=== PATIENT | male | born 1950 | race Caucasian/White ===

== ENCOUNTER 2016-08-15 08:30 | Emergency (ER) | payer MEDICARE, BC ==
[2016-08-15 09:11] LABS: BASOPHILS 0.6 % (0.0-2.0); EOSINOPHILS 0.7 % (0.0-6.0); EOSINOPHILS# 0.1 X 10^3uL (0.0-0.4); HEMATOCRIT 45.3 % (42.0-54.0); HEMOGLOBIN 15.8 g/dL (14.0-18.0); LYMPHOCYTES 12.2 % (20.0-40.0); LYMPHOCYTES# 0.9 X 10^3uL (0.8-3.8); MEAN CORPUS. HGB CONCENTRATION 34.8 g/dL (32.0-36.0); MEAN PLATELET VOLUME 7.4 fL (7.4-10.4); MONOCYTES 7.4 % (2.0-10.0); MONOCYTES# 0.5 X 10^3uL (0.2-1.0); NEUTROPHILS 79.1 % (54.0-75.0); NEUTROPHILS# 5.7 X 10^3uL (2.6-6.7); RED BLOOD COUNT 4.92 X 10^6uL (4.20-6.10); RED CELL DISTRIBUTION WIDTH 12.4 % (11.5-14.5); WHITE BLOOD COUNT 7.2 X 10^3uL (3.9-10.7)
--- NOTE | 2016-08-15 09:14 | RADIOLOGY REPORT ---
HISTORY: And swelling without trauma COMPARISON: None. FINDINGS: 3 views of the right hand obtained. There is mild periarticular osteopenia. There is normal alignment to the bones. There is no fracture or dislocation. Minimal degenerative change in the DIP joints is evident. Soft tissues are normal. IMPRESSION: No acute findings. 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 Final Electronic Signature: This report was electronically signed by Lobito Kan MD on 08/15/2016 9 :11 AM. [email or web address] /
[2016-08-15 09:16] LABS: C-REACTIVE PROTEIN 6.5 mg/L (<10.0)
--- NOTE | 2016-08-15 10:24 | ER NURSING DOCUMENTATION ---
Nurse's Notes [facility] Name:Kumar Hollingsworth Age:66 yrs Sex:Male :1950 Arrival Date:08/15/2016 Time:08:30 Bed1 Private MD: Diagnosis:Herpetic Rubio Presentation: 08/15 08:33 Presenting complaint: Patient states: R hand swelling. Transition of care: Home. lp 08:33 Acuity: SARI 4 lp 08:33 Method Of Arrival: Private Vehicle lp 08:54 Acuity: SARI 3 lp Triage Assessment: 08:53 General: Appears in no apparent distress, Behavior is appropriate for age. Pain: lp Complains of pain in dorsal aspect of distal phalanx of right middle finger, dorsal aspect of middle phalanx of right middle finger, dorsal aspect of distal phalanx of right ring finger, dorsal aspect of middle phalanx of right ring finger, palmar aspect of distal phalanx of right ring finger, palmar aspect of middle phalanx of right ring finger, palmar aspect of distal phalanx of right middle finger and palmar aspect of middle phalanx of right middle finger. Historical: - Allergies: No known drug Allergies; - Home Meds: 1. levothyroxine 75 mcg oral tab 1 tab once daily for Hypothyroidism 2. simvastatin 20 mg oral tab 1 tab once daily in the evening 3. folic acid 1 mg oral tab 1 tab once daily 4. aspirin 81 mg oral tab 1 tab once daily - PMHx: hyperlipidemia; HYPOTHYROIDISM; - PSHx: R rotator cuff surgery; - Tetanus: unknown. - Ebola Screening: : Patient negative for fever greater than or equal to 101.5 degrees Fahrenheit, and additional compatible Ebola Virus Disease symptoms. Patient denies exposure to infectious person. Patient denies travel to an Ebola-affected area in the 21 days before illness onset. . - Immunization history: Pneumococcal vaccine is up to date, Flu Vaccine < 1 year. - Social history: Smoking status: Patient states was never smoker of tobacco. Screenin:57 Infectious Disease Risk None. Abuse screen: Denies threats or abuse. Denies injuries lp from another. Nutritional screening: No deficits noted. Assessment: 08:55 General: Behavior is appropriate for age. Pain: Complains of pain in dorsal aspect of lp distal phalanx of right middle finger, dorsal aspect of middle phalanx of right middle finger, dorsal aspect of distal phalanx of right ring finger, dorsal aspect of middle phalanx of right ring finger, palmar aspect of distal phalanx of right ring finger, palmar aspect of middle phalanx of right ring finger, palmar aspect of distal phalanx of right middle finger and palmar aspect of middle phalanx of right middle finger. Neuro: Level of Consciousness is awake, alert, Oriented to person, place, time, event, [employer] are equal bilaterally Moves all extremities. EENT: No deficits noted. Cardiovascular: Heart tones S1 S2 Edema is 2+ to right fingers Pulses are all present. Respiratory: Breath sounds are clear bilaterally. GI: No deficits noted. : No deficits noted. Derm: Skin has lesions on R middle and ring finger R hand swelling and redness in R middle finger and R ring finger. Musculoskeletal: Circulation, motion, and sensation intact Capillary refill < 3 seconds Swelling present in dorsal aspect of distal phalanx of right middle finger, dorsal aspect of middle phalanx of right middle finger, dorsal aspect of distal phalanx of right ring finger, dorsal aspect of middle phalanx of right ring finger, palmar aspect of distal phalanx of right ring finger, palmar aspect of middle phalanx of right ring finger, palmar aspect of distal phalanx of right middle finger and palmar aspect of middle phalanx of right middle finger. Vital Signs: 08:42 BP 144 / 103; Pulse 90; Resp 16; Temp 98.0(O); Pulse Ox 90% on R/A; Weight 86.18 kg; lp Height 6 ft. 1 in. (185.42 cm); Pain 5/10; 08:42 Body Mass Index 25.07 (86.18 kg, 185.42 cm) lp ED Course: 08:31 Patient arrived in ED. lm3 08:33 Nadya Hernandez, ARVIND is Primary Nurse. lp 08:34 Triage completed. lp 08:[address] Hays notified. lp 08:47 Camron Hays MD is Attending Physician. sc 08:57 Valuables Remains with patient Patient has correct armband on for positive lp identification. Bed in low position. Call light in reach. 09:05 Port Xray Completed. dnn 09:07 HAND; [address] [place] [id number] In Process Unspecified. EDMS 09:07 HAND [address] [place] [id number] In Process Unspecified. EDMS 09:17 HAND; [address] [place] [id number] Sent. dnn 09:17 HAND [address] [place] [id number] Sent. dnn Administered Medications: No medications were administered Outcome: 10: Discharge ordered by . jack 10:23 Discharged to home ambulatory. lp 10: Condition: good 10:23 Instructed on discharge instructions, follow up and referral plans. medication usage, Demonstrated understanding of instructions. 10:23 Patient left the ED. lp Signatures: Dispatcher [employer] Nadya Alexandre, ARVIND RN Camron Brady MD MD sc Abbott, Lobito Taylorn Hannah Bustillos
--- NOTE | 2016-08-15 10:24 | ER PHYSICIAN DOCUMENTATION ---
Physician Documentation [facility] Name:Kumar Hollingsworth Age:66 yrs Sex:Male :1950 Arrival Date:08/15/2016 Time:08:30 Bed1 Private MD: Camron Potts Disposition: 08/15/16 10:17 Discharged to Home/Self Care. Impression: Herpetic Leon. - Condition is Good. - Discharge Instructions: Sore, Cold - HERPES LABIALIS, HSV: Type I. - Medical Reconciliation form form. - Follow up: Private Physician; When: As needed; Reason: Worsening of condition. - Problem is new. - Symptoms are unchanged. HPI: 08/15 10:20 This 66 yrs old Male presents to ER via Private Vehicle with complaints of sc Hand Swelling. 10:20 The patient or guardian reports a rash, raised, vesicular. The complaints affect the sc palmar aspect of distal phalanx of right middle finger and palmar aspect of middle phalanx of right ring finger. Context: The problem was sustained at home, resulted from an unknown cause. Onset: The symptom(s)/episode began/occurred today. Associated signs and symptoms: Pertinent positives: tingling distally, burning yesterday then lesions today. Historical: - Allergies: No known drug Allergies; - Home Meds: 1. levothyroxine 75 mcg oral tab 1 tab once daily for Hypothyroidism 2. simvastatin 20 mg oral tab 1 tab once daily in the evening 3. folic acid 1 mg oral tab 1 tab once daily 4. aspirin 81 mg oral tab 1 tab once daily - PMHx: hyperlipidemia; HYPOTHYROIDISM; - PSHx: R rotator cuff surgery; - Tetanus: unknown. - Ebola Screening: : Patient negative for fever greater than or equal to 101.5 degrees Fahrenheit, and additional compatible Ebola Virus Disease symptoms. Patient denies exposure to infectious person. Patient denies travel to an Ebola-affected area in the 21 days before illness onset. . - Immunization history: Pneumococcal vaccine is up to date, Flu Vaccine < 1 year. - Social history: Smoking status: Patient states was never smoker of tobacco. ROS: 10:22 Constitutional: Negative for fever, chills, and weight loss. sc Eyes: Negative for injury, pain, redness, and discharge. Neck: Negative for injury, pain, and swelling. Cardiovascular: Negative for chest pain, palpitations, and edema. Respiratory: Negative for shortness of breath, cough, wheezing, and pleuritic chest pain. Abdomen/GI: Negative for abdominal pain, nausea, vomiting, diarrhea, and constipation. Back: Negative for injury and pain. Skin: Negative for injury, rash, and discoloration. 10:22 Neuro: Negative for headache, weakness, numbness, tingling, and seizure. sc 10:22 MS/extremity: Positive for tingling. Exam: Constitutional: This is a well developed, well nourished patient who is awake, alert, and in no acute distress. Head/Face: Normocephalic, atraumatic. Eyes: Pupils equal round and reactive to light, extra-ocular motions intact. Lids and lashes normal. Conjunctiva and sclera are non-icteric and not injected. Cornea within normal limits. Periorbital areas with no swelling, redness, or edema. Neck: Trachea midline, no thyromegaly or masses palpated, and no cervical lymphadenopathy. Supple, full range of motion without nuchal rigidity, or vertebral point tenderness. No meningismus. Back: No spinal tenderness. No costovertebral tenderness. Full range of motion. 10:22 Skin: Warm, dry with normal turgor. Normal color with no rashes, no lesions, and no sc evidence of cellulitis. 10:22 Musculoskeletal/extremity: Extremities: grossly normal except: rash, ROM: intact in all extremities, Circulation is intact in all extremities. Sensation intact. 10:22 Skin: Appearance: normal except for affected area. Vital Signs: 08:42 BP 144 / 103; Pulse 90; Resp 16; Temp 98.0(O); Pulse Ox 90% on R/A; Weight 86.18 kg; lp Height 6 ft. 1 in. (185.42 cm); Pain 5/10; 08:42 Body Mass Index 25.07 (86.18 kg, 185.42 cm) lp MDM: 09:35 Patient medically screened. sc 10:23 Differential diagnosis: herpetic leon. Data reviewed: vital signs, nurses notes, lab sc test result(s), radiologic studies, and as a result, I will discharge patient. Counseling: I had a detailed discussion with the patient and/or guardian regarding: the historical points, exam findings, and any diagnostic results supporting the discharge/admit diagnosis, lab results, radiology results, the need for outpatient follow up, to return to the emergency department if symptoms worsen or persist or if there are any questions or concerns that arise at home. 08/15 09:15 Order name: CBC AUTO DIF, MDIF/RMOR IF IND; Complete Time: 09:56 EDAL 08/15 09:55 Interpretation: Normal. sd 08/15 09:18 Order name: C-REACTIVE PROTEIN; Complete Time: 09:56 EDAL 08/15 09:56 Interpretation: Normal. sd 08/15 09:02 Order name: HAND; [address] [place] [id number]; Complete Time: 09:56 EDAL 08/15 09:55 Interpretation: Normal. sd 08/15 09:02 Order name: HAND [address] [place] [id number]; Complete Time: 09:56 EDAL 08/15 09:55 Interpretation: Normal. sd 08/15 09:16 Order name: HAND; [address] [place] [id number]; Complete Time: 09:56 EDAL 08/15 09:56 Interpretation: Normal Except. sd Dispensed Medications: No medications were administered Signatures: Dispatcher [employer] EDMS Nadya Hernandez, RN RN Camron Brady MD MD sd
== END 2016-08-15 10:24 | disposition home or self-care (01) ==
LOC: ER 08:30
DX: B00.89 Other herpesviral infection (principal); Z79.899 Other long term (current) drug therapy; Z79.82 Long term (current) use of aspirin
CPT/HCPCS: 36415; 85025; 86140; 99283